=== PATIENT | female | born 1945 | race Caucasian/White ===

== ENCOUNTER 2016-06-03 13:49 | Observation (INO) | payer OTHER, MEDICARE ==
[2016-06-03] MEDS ORDERED: IOPAMIDOL (ISOVUE 370) 100 ML BTL IV ONE (14:12)
--- NOTE | 2016-06-03 14:13 | EDPHY ---
H & P Stated Complaint: This morning not, "thinking straight" , dizzy, facial numbness. Time Seen by Provider: 06/03/16 13:58 HPI/ROS: CHIEF COMPLAINT: Acute confusion, left facial numbness and weakness, 3 day history of occasional headache HISTORY OF PRESENT ILLNESS: The patient presents to the ED after she developed left facial numbness and weakness at approximately noon today. The patient states that this was preceded by an episode of acute confusion. The patient denies any peripheral complaints of numbness or weakness. The patient denies a current headache. She is not anticoagulated. She has no history of malignancy. The patient was brought in by her who denied any reported dysarthria or aphasia. In the ED, she continues to complain of facial numbness and a slight facial droop. REVIEW OF SYSTEMS: A comprehensive 10 point review of systems is otherwise negative aside from elements mentioned in the history of present illness. Source: Patient Exam Limitations: No limitations - Personal History Current Tetanus Diphtheria and Acellular Pertussis (TDAP): Yes - Medical/Surgical History Hx Asthma: No Hx Chronic Respiratory Disease: No Hx Diabetes: No Hx Cardiac Disease: No Hx Renal Disease: No Hx Cirrhosis: No Hx Alcoholism: No Hx HIV/AIDS: No Hx Splenectomy or Spleen Trauma: No - Social History Smoking Status: Never smoked - Physical Exam Exam: General Appearance: Alert, no distress Eyes: Pupils equal and round no pallor or injection ENT, Mouth: Mucous membranes moist Respiratory: There are no retractions, lungs are clear to auscultation Cardiovascular: Regular rate and rhythm Gastrointestinal: Abdomen is soft and nontender, no masses, bowel sounds normal Neurological: Alert and oriented x4, 5/5 strength noted all 4 extremities, slight left facial asymmetry, decreased sensation to light touch in the face, mild ataxia noted with left finger to nose, difficult to assess [id number] in the right upper extremity secondary to IV placement. Skin: Warm and dry, no rashes Musculoskeletal: Neck is supple nontender Extremities: symmetrical, full range of motion Constitutional: Initial Vital Signs Temperature (C) 36.4 C 06/03/16 13:51 Heart Rate 73 06/03/16 13:51 Respiratory Rate 18 06/03/16 13:51 Blood Pressure 146/66 H 06/03/16 13:51 O2 Sat (%) 96 06/03/16 13:51 O2 Delivery Mode Nasal Cannula O2 (L/minute) 2 Allergies/Adverse Reactions: latex [Latex] Allergy (Severe, Verified 06/01/15 11:38) morphine Allergy (Mild, Verified 06/01/15 11:38) Rash Home Medications: Medication Instructions Recorded Estradiol [Estrogel] 50 gm TD 04/26/11 valACYclovir [ValTREX] 500 mg PO 04/26/11 Olmesartan/Amlodipin/Hcthiazid 1 each PO 04/22/12 [Tribenzor 20-5-12.5 Mg Tablet] Ofloxacin 0.3% [Ocuflox 0.3%] 2 drops LEFTEYE QID #1 opht.btl 06/01/15 Medical Decision Making - Diagnostics EKG Interpretation: EKG: Complete interpretation has been separately recorded in the [facility] archive. Summary impression: Left bundle branch block, sinus rhythm, rate 68 Imaging: CT head without contrast: Negative for intracranial hemorrhage or acute abnormality. Study results reported to me by Dr. Boston Francois. ED Course/Re-evaluation: The patient presents to the ED with acute facial numbness and weakness that began at noon. After my evaluation I did activate the patient as a stroke alert. She was taken for a stat CT scan of the head which demonstrates no evidence of intracranial hemorrhage or intracranial abnormality. Patient was seen in consultation by the on-call neurologist for [facility] via the tele Neurology service. The patient returned from CT scan and had improved symptoms of her left facial weakness. At the time of the evaluation by the Neurology service she was asymptomatic. He does not feel the patient is a candidate for tPA based upon her markedly improved symptoms and current NIH stroke scale of 0. I did speak with Dr. Pak from [facility] who recommends admission for possible TIA. I have ordered a CTA of the head and neck. Consultation is made with Dr. Almendarez from the hospitalist service who will admit the patient. Differential Diagnosis: Differential diagnosis considered includes stroke, TIA, metabolic abnormality, seizure, carotid stenosis, dissection - Data Points Laboratory Results: Laboratory Results 06/03/16 14:05 06/03/16 14:05 06/03/16 06/03/16 06/03/16 14:05 14:05 14:05 WBC 6.88 10^3/uL 10^3/uL (3.80-9.50) RBC 3.98 10^6/uL L 10^6/uL (4.18-5.33) Hgb 14.0 g/dL g/dL (12.6-16.3) POC Hgb 15.0 gm/dL gm/dL (12.3-15.9) Hct 40.1 % % (38.0-47.0) POC Hct 44 % % (35.5-47.5) MCV 100.8 fL H fL (81.5-99.8) MCH 35.2 pg H pg (27.9-34.1) MCHC 34.9 g/dL g/dL (32.4-36.7) RDW 11.8 % % (11.5-15.2) Plt Count 366 10^3/uL 10^3/uL (150-400) MPV 8.8 fL fL (8.7-11.7) Neut % (Auto) 66.9 % % (39.3-74.2) Lymph % (Auto) 24.9 % % (15.0-45.0) [place] % (Auto) 5.8 % % (4.5-13.0) Eos % (Auto) 1.5 % % (0.6-7.6) Baso % (Auto) 0.6 % % (0.3-1.7) Nucleat RBC Rel Count 0.0 % % (0.0-0.2) Absolute Neuts (auto) 4.61 10^3/uL 10^3/uL (1.70-6.50) Absolute Lymphs (auto) 1.71 10^3/uL 10^3/uL (1.00-3.00) Absolute Monos (auto) 0.40 10^3/uL 10^3/uL (0.30-0.80) Absolute Eos (auto) 0.10 10^3/uL 10^3/uL (0.03-0.40) Absolute Basos (auto) 0.04 10^3/uL 10^3/uL (0.02-0.10) Absolute Nucleated RBC 0.00 10^3/uL 10^3/uL (0-0.01) Immature Gran % 0.3 % % (0.0-1.1) Immature Gran # 0.02 10^3/uL 10^3/uL (0.00-0.10) POC Sodium 139 mEq/L mEq/L (134-144) Sodium 138 mEq/L mEq/L (134-144) POC Potassium 3.9 mEq/L mEq/L (3.3-5.0) Potassium 4.2 mEq/L mEq/L (3.5-5.2) POC Chloride 99 mEq/L mEq/L (96-108) Chloride 100 mEq/L mEq/L (97-110) Carbon Dioxide 26 mEq/l mEq/l (22-31) Anion Gap 12 mEq/L mEq/L (8-16) POC BUN 17 mg/dL mg/dL (7-23) BUN 17 mg/dL mg/dL (7-23) Creatinine 1.0 mg/dL mg/dL (0.6-1.0) POC Creatinine 1.0 mg/dL mg/dL (0.6-1.2) Estimated GFR 55 Glucose 203 mg/dL H mg/dL (70-100) POC Glucose 203 mg/dL H mg/dL (70-100) Calcium 9.9 mg/dL mg/dL (8.5-10.4) Point of Care Test Results: 06/03/16 14:05 POC Sodium 139 POC Potassium 3.9 POC Chloride 99 POC BUN 17 POC Creatinine 1.0 POC Glucose 203 H Departure - Departure Disposition: [facility] Inpatient Acute Clinical Impression: Transient cerebral ischemia Condition: Good Referrals: Sami Teague MD [Primary Care Provider] - As per Instructions
[2016-06-03 14:15] LABS: % IMMATURE GRANULYOCYTES 0.3 % (0.0-1.1); ABSOLUTE IMMATURE GRANULOCYTES 0.02 10^3/uL (0.00-0.10); ADD DIFF? NO; ADD MORPH? NO; ADD SCAN? NO; ATYPICAL LYMPHOCYTE FLAG 10 (0-99); FRAGMENT RBC FLAG 0 (0-99); HEMATOCRIT 40.1 % (38.0-47.0); LEFT SHIFT FLG 0 (0-99); LIPEMIA HEMOLYSIS FLAG 90 (0-99); MEAN CELL HEMOGLOBIN 35.2 pg (27.9-34.1); MEAN CELL HEMOGLOBIN CONCENTR. 34.9 g/dL (32.4-36.7); MEAN CELL VOLUME 100.8 fL (81.5-99.8); MEAN PLATELET VOLUME 8.8 fL (8.7-11.7); PLATELET CLUMPS FLAG 0 (0-99); PLATELET COUNT 366 10^3/uL (150-400); RED BLOOD CELL COUNT 3.98 10^6/uL (4.18-5.33); RED CELL DISTRIBUTION WIDTH 11.8 % (11.5-15.2)
[2016-06-03 14:26] LABS: ANION GAP 12 mEq/L (8-16); CALCIUM 9.9 mg/dL (8.5-10.4); CARBON DIOXIDE 26 mEq/l (22-31); CHLORIDE 100 mEq/L (97-110); GLOMERULAR FILTRATION RATE 55; GLUCOSE 203 mg/dL (70-100); POTASSIUM 4.2 mEq/L (3.5-5.2); SODIUM 138 mEq/L (134-144)
--- NOTE | 2016-06-03 14:32 | CPEKG ---
Heart Rate: 68 RR Interval: 882 P-R Interval: 172 QRSD Interval: 140 QT Interval: 464 QTC Interval: 494 P [place]: 70 QRS [place]: -21 T Wave [place]: 113 EKG Severity - ABNORMAL ECG - EKG Impression: SINUS RHYTHM EKG Impression: LEFT BUNDLE BRANCH BLOCK Electronically Signed By: Johnie Wolf 03-Jun-2016 15:00:51
[2016-06-03] MEDS ORDERED: GADOBUTROL 10 ML VIAL IVP ONE (15:39)
[2016-06-03] MEDS ORDERED: ASPIRIN 81 MG CHEWABLE TAB ONE (15:39)
[2016-06-03] MEDS: ASPIRIN EC 81 MG TAB PO SCH (15:49)
--- NOTE | 2016-06-03 17:05 | GHP ---
[f rep st] HISTORY AND PHYSICAL DATE OF ADMISSION: 06/03/2016 CHIEF COMPLAINT: Left face numbness. HISTORY OF PRESENT ILLNESS: A 71-year-old female with a history of hypertension, on estrogen replac ement therapy after hysterectomy at age 41, who presents with sudden onset of left lower jaw numbnes s and mild confusion the morning of presentation. The patient's last time of normal was 11 a.m. whe n she noted some numbness on the inferior portion of her left cheek, was then attempting to use the computer and noted she was having difficulty completing tasks that typically would have been uncompl icated for her. She ate some food which she tolerated without nausea and had the confusion improve a bit yet the sensation in her left cheek persisted. She, therefore, presented to the emergency depa rtment for evaluation. In the ED she reports 3 episodes of a sharp shooting pain on the left side o f her head. In the days preceding this presentation they were unsustained. She has no history of m igraines. She denies any difficulty swallowing. Denies any vision changes. Reports that the sensa tion in her cheek has been improving since 11 a.m. and that the confusion now feels resolved. The p atient denies any chest pain. Denies shortness of breath. Denies cough. Denies nausea, vomiting, abdominal pain, diarrhea, dysuria, hematuria, melena, lower extremity edema or any rashes. She has no weakness or loss of sensation elsewhere in her body. Her gait feels strong and normal. PAST MEDICAL HISTORY: 1. Hypertension. 2. Status post hysterectomy at age 41. 3. Sudden hearing loss of the right ear. Diagnosis unclear. Patient was treated with steroids and had near complete resolution. 4. History of herpes orally. SOCIAL HISTORY: Negative for tobacco. Patient does take white wine every night, several glasses. Denies any illicit drugs or marijuana. FAMILY HISTORY: Negative for strokes. REVIEW OF SYSTEMS: A 10-point review of systems is negative with the exception of that reported in the HPI. PHYSICAL EXAMINATION: VITAL SIGNS: Blood pressure 136/74, heart rate 74, respiratory rate 18, satu rating 96% on room air, 36.7. GENERAL: This is a healthy-appearing middle-aged female in no acute distress. HEENT: Notable for moist mucous membranes. Eye exam is negative for any icterus. CARDI AC: Patient is regular rate and rhythm. Quiet systolic murmur is appreciated. PULMONARY: Good re spiratory effort. Clear to auscultation bilaterally. GASTROINTESTINAL: Positive bowel sounds. Ab domen is soft and nontender in all 4 quadrants. MUSCULOSKELETAL: Negative for any lower extremity edema. SKIN: Negative for any rashes. NEUROLOGIC: Patient has remnant decreased sensation in the lower portion of her left face. Pupils are equal, round, reactive to light. Cranial nerves are ot herwise intact. Strength is 5/5 bilaterally of the upper and lower extremities. PSYCHIATRIC: She is pleasant and cooperative on interview and examination. DATA: White count 6.8, hematocrit 40.1, platelet count of 366. BMP is normal. Blood glucose is [address] of the head, which I personally reviewed and interpreted, shows no acute bleeds o r intracranial findings. ASSESSMENT AND PLAN: This is a 71-year-old female, presenting with transient left facial numbness. 1. Acute transient ischemic attack. Initial imaging is negative. Her neurologic exam is near norm al during my evaluation which per report is markedly improved. Her last time of normal neurologic e xam was 11 a.m.. She took aspirin in the home. We will admit the patient for cardiac monitoring. Check CTA, as well as MRI of the brain. Check a transthoracic echocardiogram, lipids and a hemoglob in A1c. I have already discussed the case and Dr. Cruz from neurology will evaluate in the [facility]. We will hold the patient's estrogens until discussion with Neurology. Suspect this is 1 of h er higher risk contributors and likely will need to be weaned off or stop it altogether during this hospital stay. 2. Hypertension. We will continue her home medications. 3. Alcohol use. We will continue a glass a wine in the evenings to avoid any withdrawal. 4. Prophylaxis with Lovenox. DIET: Regular. DISPOSITION: I expect in less than 2 midnights that the patient's evaluation is normal and her neur ologic exam stays stable. Discussed the case with Dr. Cruz. He will consult in the a.m. /[id number]/MODL
[2016-06-03] MEDS ORDERED: WHITE WINE 120 ML BOTTLE PO SCH (18:00)
[2016-06-04 05:55] LABS: CHOLESTEROL 171 mg/dL (140-220); CHOLESTEROL/HDL RATIO 2.04 RATIO (1.00-4.44); HIGH DENSITY LIPOPROTEIN 84 mg/dL (40-85); LDL/HDL RATIO 0.92 RATIO (1.00-3.22); LOW DENSITY LIPOPROTEIN 77 mg/dL (80-100); NON-HIGH DENSITY LIPOPROTEIN 87 mg/dL (90-129); TRIGLYCERIDE 51 mg/dL (35-135); VERY LOW DENSITY LIPOPROTEINS 10 mg/dL (8-25)
[2016-06-04] MEDS: ASPIRIN EC 81 MG TAB PO SCH (08:27)
[2016-06-04 08:44] LABS: HEMOGLOBIN A1C 5.4 % (4.0-6.0)
[2016-06-04] MEDS ORDERED: AMLODIPINE PO SCH (09:00)
[2016-06-04] MEDS ORDERED: OLMESARTAN PO SCH (09:00)
[2016-06-04] MEDS ORDERED: Herbals/Supplements -Info Only PO SCH (09:00)
[2016-06-04] MEDS ORDERED: valACYclovir 500 MG TAB PO SCH (09:00)
[2016-06-04] MEDS ORDERED: HYDROCHLOROTHIAZIDE PO SCH (09:00)
--- NOTE | 2016-06-04 09:51 | GCON ---
[f rep st] CONSULTATION NEUROLOGIC CONSULTATION. REFERRING PHYSICIAN: Elsie Almendarez MD HISTORY: The patient is a 71-year-old woman who I am asked to see in neurologic consultation regard ing an onset of mild confusion yesterday around 11 a.m. and associated abnormal sensations in the le ft side of her face. She was having a little trouble working on the computer and went to speak to h er and was telling him she was having trouble. He checked her and did not find any speech p roblems. She was feeling a sense of tingling or numbness in the left side of her face. She was abl e to swallow. She came to the emergency room and was evaluated with stroke alert activation and ult imately found to have an NIH stroke scale of 1, but it was felt that she was not a candidate for tPA because of the improving very mild deficits. She has never had something exactly like this, except years ago she might have had some symptoms in the left side of her neck or face while she was in [place] and recalls nothing specifically being identified as a concern. She did not have any symptom s in the extremities. Her vision was not affected. There was no headache. She does not have a his tory of migraine. She has been on estrogen replacement since her hysterectomy many years ago. The duration of symptoms was probably 2 or 3 hours and then a little bit longer before complete resoluti on of the facial paresthesias. She has not had any fever, chills, nausea, vomiting, or diarrhea. N o chest pain, palpitations, or shortness of breath. No other exacerbating or alleviating factors fo r the symptoms. They remained mild throughout. A 10-point review of systems is completed and unrem arkable except for that noted above. In the emergency department, she had a head CT that was unremarkable. CT angiogram of the head and neck are unremarkable with no significant stenoses. LDL cholesterol 77. She has an MRI scan showin g nonspecific white matter changes but no evidence of an acute stroke. PAST MEDICAL HISTORY: Hypertension, hysterectomy at age 41, hearing loss in the right ear, history of oral herpes. SOCIAL HISTORY: She is retired from working as a commercial real estate broker. She has a glass of white wine most evenings, can be more than 1 glass sometimes. No smoking or drug use. FAMILY HISTORY: Negative for stroke. Late in life, her father had carotid disease with endarterect neptali. She lives in [place], [place] now. MEDICATIONS: She was not taking any daily aspirin prior to this event. She is on Estratest 1 daily , Valtrex 1000 mg daily, and Tribenzor for blood pressure. She has had 81 mg of aspirin added now s roman hospitalization. ALLERGIES: Latex and morphine. PHYSICAL EXAM: VITAL SIGNS: Blood pressure 122/69, pulse 68, respirations 16, temperature 36.9. G ENERAL: She is well developed, in no acute distress. EYES: Clear. NECK: Supple with no bruits o r masses. CARDIAC: Regular rate and rhythm with no murmur. EXTREMITIES: No cyanosis or edema. P ulses are 2+. NEUROLOGIC: She is awake, alert, and attentive with clear fluent speech. She is yann ented to person, place, time, and general situation. She has a good general fund of knowledge as we ll as normal concentration and attention with preservation of recent and remote memory. Normal lang uage skills. She has a friendly euthymic affect. Normal visual acuity. Pupils are 3 mm and reacti ve. Funduscopic exam unremarkable. No visual field loss. Extraocular movements are intact with no rmal facial sensation and strength. Palate elevates symmetrically and tongue protrudes midline. He aring is preserved. No weakness of head turning or shoulder shrug. Motor exam: Normal muscle bulk and tone with 5/5 strength and no abnormal movements. Sensation is preserved for temperature and l ight touch. No ataxia on [id number]. There is minimal tremulousness at the end of pointing on [id number]. Reflexes 1+ and symmetric with no pathologic reflexes. No discoordination. LABORATORY STUDIES: As outlined above. Echocardiogram is pending. She did have some elevation of blood sugar, around 200 when she came in, of uncertain source. MCV of 100.8 but normal platelets. EKG: Sinus rhythm. IMPRESSION: The patient is experiencing no symptoms currently. Her NIH stroke scale is 0. I suspe ct this was an episode of transient ischemic attack with small vessel disease as the likely source. Large vessel stenoses are not present on the CT angiogram. The patient has good cholesterol. Grace vandana, I would recommend consideration of a statin therapy, even with a normal cholesterol level as po tentially lowering the relative risk for stroke and heart attack. She does not want to take a stati n for now but may discuss this with Dr. Teague. She was not on aspirin, so she should continue that for stroke prophylaxis. Unless something unexpected arises from the rest of her diagnostic wo rkup, she should be able to be discharged. There is an elevation of the blood glucose of unclear si gnificance that Dr. Teague can follow up on. I am not sure if the elevated MCV may be a reflec tion of alcohol, so she should be sure to not consume more than 1 glass of alcohol per day. She estephanie uld maintain a regular exercise program. The differential considerations of complex migraine versus seizure are much less likely than transie nt ischemic attack. I gave her my contact information, but she does not need routine followup with me unless further questions arise. /[id number]/MODL
--- NOTE | 2016-06-04 12:05 | ECHO ---
[id number] + + [address] : : [place] [address] : : [phone] + + Adult Echocardiographic Report + ------+ :Name: Karen DUKES Date: 06/04/2016 10:28 AM : : Hospital Admission Number: [id number] Hernán n: 349: :: 1945 Gender: Female Height: 72 in : :Age: 71 yrs Race: WH Weight: 165 lb : :Reason For Study: Eval LV Fx : : BSA: 2.0 meters 2 : :History: TIA, Numbness L Side : + ------+ MMode/2D Measurements \T\ Calculations IVSd: 0.93 cm LVIDd: 4.3 cm FS: 41.0 % Ao root diam: 3.2 cm LVPWd: 0.96 cm LVIDs: 2.6 cm EDV(Teich): 84.3 ml ACS: 1.8 cm ESV(Teich): 23.5 ml EF(Teich): 72.1 % Normal Measurement Values: + + :LVIDd (3.5-5.7cm) IVSd (0.6-1.1cm) LVPWd (0.6-1.1cm) Aortic Root (2.0-3.7cm)Left Atrium (1.5-4.0cm): :LV Vol(d) (76-115ml) LV Vol(s) (29-48ml) Ejec Fraction (50-65%)PV Xiang (0.6- 1.2m/s) TV Xiang (0.4-1.0m/s) : :MV E Xiang (0.8-1.0m/s)MV A Xiang (0.3-1.0m/s)LVOT Xiang (0.7-1.2m/s) Asc Ao Xiang ( 0.9-1.8m/s) : + + Doppler Measurements \T\ Calculations MV E max xiang: Ao V2 max: LV V1 max: PA V2 max: 59.2 cm/sec 171.0 cm/sec 161.8 cm/sec 139.8 cm/sec MV A max xiang: Ao max PG: LV V1 max PG: PA max P.5 cm/sec 11.7 mmHg 10.5 mmHg 7.8 mmHg MV E/A: 0.78 TR max xiang: 243.0 cm/sec TR max P.6 mmHg RAP systole: 5.0 mmHg RVSP(TR): 28.6 mmHg Left Ventricle The left ventricle is normal in size. There is normal left ventricular wall thickness. The left ventricular ejection fraction is normal. There is Doppler evidence for diastolic dysfunction. Ejection Fraction = 73%. Septal motion is consistent with conduction abnormality. Right Ventricle The right ventricle is normal in size and function. Atria The left atrial size is normal. Right atrial size is normal. Mitral Valve The mitral valve is normal in structure and function. There is no evidence of mitral valve prolapse. There is no mitral valve stenosis. There is no mitral regurgitation noted. Tricuspid Valve Normal tricuspid valve. There is trace tricuspid regurgitation. Right ventricular systolic pressure is normal. Aortic Valve The aortic valve is normal in structure and function. There is no aortic stenosis. There is no aortic insufficiency. Pulmonic Valve The pulmonic valve is normal in structure and function. There is no pulmonic valvular regurgitation. Great Vessels The aortic root is normal size. Pericardium/Pleural There is a fat pad seen. Conclusion A complete two-dimensional transthoracic echocardiogram was performed (2D, M-mode, Doppler and color flow Doppler). The left ventricular ejection fraction is normal. There is Doppler evidence for diastolic dysfunction. Ejection Fraction = 73%. Septal motion is consistent with conduction abnormality. LBBB The right ventricle is normal in size and function. The mitral valve is normal in structure and function. There is trace tricuspid regurgitation. Right ventricular systolic pressure is normal. The aortic valve is normal in structure and function. There is a fat pad seen. Final Reading Physician: Bethel Carlson signed on 06/04/2016 12:04 PM Ordering Physician: Elsie Almendarez Performed By: Fernando Gilbert, MAYACS
--- NOTE | 2016-06-04 12:44 | HOSPPROG ---
Hospitalist Progress Note Assessment/Plan: Nadja is a 71 y/o female who presented to the ER with left facial numbness. Today is my first encounter with the patient. Chart reviewed. *Likely a TIA CTA of head and neck stable MRI of brain shows nothing acute Echo shows diastolic dysfunction aspirin therapy will discuss w PCP and discuss statin therapy for stroke reduction *LBBB evaluated her 12 lead ECG hx of this since age 36 *Hyperglycemia glucoses are elevated has a stable A1C of 5.4 *HTN 129/83 *alcohol use with elevated MCV *Plan: dc home with further f/u with Dr Teague Subjective: Nadja feels well/ ready to go. Objective: Vital Signs Temp Pulse Resp BP Pulse Ox 36.6 C 71 18 129/83 H 97 06/04/16 08:00 06/04/16 08:00 06/04/16 08:00 06/04/16 08:00 06/04/16 08:00 06/03/16 06/04/16 06/05/16 05:59 05:59 05:59 Intake Total 500 Output Total 200 Balance 300 - Physical Exam Constitutional: no apparent distress, appears nourished, not in pain Eyes: PERRL Ears, Nose, Mouth, Throat: hearing normal Cardiovascular: regular rate and rhythym Respiratory: no respiratory distress Gastrointestinal: normoactive bowel sounds Skin: warm Musculoskeletal: full muscle strength Neurologic: AAOx3, CN II-XII Intact, No weakness, No numbness, No pronator drift , No facial droop Psychiatric: interacting appropriately, not anxious ICD10 Worksheet Patient Problems: Problems Problem Status Onset Transient cerebral ischemia Acute
[2016-06-04 13:25] VITALS: BP 119/66; PULSE 67; RESP 16; TEMP 98.1; O2SAT 95
--- NOTE | 2016-06-04 13:58 | GDS ---
[f rep st] DISCHARGE SUMMARY DISCHARGE DIAGNOSES: 1. Likely transient ischemic attack. 2. Left bundle branch block. 3. Hyperglycemia. 4. Hypertension. 5. Alcohol use with elevated MCV. CONSULTATIONS DURING HOSPITAL STAY: Dr. Goldy Cruz HISTORY: Briefly, the patient is a 71-year-old female with a history of hypertension, on estrogen t herapy after hysterectomy, who presented to the emergency room with onset of left lower jaw numbness and mild confusion. She was noted to be normal at 11 in the morning. She was attempting to use [employer] computer, noted she was having difficulty completing tasks that would typically have been uncompli cated for her. She ate some food, which she tolerated without nausea. In the ER, she reported 3 ep isodes of sharp shooting pain on the left side of her head. She has no history of migraines. She w as admitted for further care. HOSPITAL COURSE: 1. Likely, a transit ischemic attack. She was seen and evaluated by the neurologist, Dr. Goldy bertrand. She had a CT of the head that was unremarkable. CT angiogram of the head and neck was also unremarkable without significant stenosis. An MRI was performed, which showed nonspecific white mat ter changes but no evidence of an acute stroke. LDL was checked and was 77. Hemoglobin A1c was sta ble. Vital signs have been stable. Her symptoms subsequently resolved. Recommendation is for her to remain on aspirin therapy and to discuss with her primary care provider, statin therapy. At this time, she would like to hold off on statin therapy. Echocardiogram shows diastolic dysfunction. 2. Left bundle branch block. Reviewed her 12-lead EKG, which did indeed confirm this. She says th at she has had a history of this since age 36. 3. Hyperglycemia. Her glucoses were noted to be elevated on admission. She had a hemoglobin A1c o f 5.4. Further follow up with Dr. Teague. 4. Hypertension. Blood pressure is 129/83. 5. Alcohol use. She has an elevated MCV. She had no signs or symptoms of any type of withdrawal. PENDING LABS AND TESTS: None. CONDITION AT DISCHARGE: Stable. Blood pressure is 129/83, respiratory rate is 18, pulse 71, temper ature 36.6 Celsius, O2 saturation on room air 97%. MEDICATIONS AT DISCHARGE: Please see the EMR. DISCHARGE INSTRUCTIONS: 1. Follow up with Dr. Trojanovich, to get her glucose re-evaluated. She is also to discuss with janette berman about statin therapy and continued estrogen therapy. 2. If she has any stroke symptoms, to return to the emergency room. /[id number]/MODL
== END 2016-06-04 14:00 | disposition home or self-care (01) ==
LOC: F3N 16:41
PROVIDERS: ADMIT Hospitalist; ATTEND Internal Medicine Pulmonary Disease
DX: G45.9 Transient cerebral ischemic attack, unspecified (principal); I44.7 Left bundle-branch block, unspecified; R73.9 Hyperglycemia, unspecified; I10 Essential (primary) hypertension; Z72.89 Other problems related to lifestyle
CPT/HCPCS: 70450; 70496; 70498; 70553; 71010; 92523; 93005; 93306; 99285; A9585; G0378; G8999; G9158; G9186; Q9967; 82947-QW

== ENCOUNTER → 2016-12-27 | Outpatient (CLI) | payer OTHER, MEDICARE | LOC: CIMAGING 13:55 | PROVIDERS: ATTEND Internal Medicine | DX: R06.02 Shortness of breath (principal); R05 Cough | CPT/HCPCS: 71020-PO ==

== ENCOUNTER → 2016-12-31 | Outpatient (CLI) | payer OTHER, MEDICARE | LOC: CIMAGING 10:00 | PROVIDERS: ATTEND Internal Medicine | DX: I82.409 Acute embolism and thrombosis of unspecified deep veins of unspecified lower extremity (principal); R05 Cough; R07.9 Chest pain, unspecified | CPT/HCPCS: 71020-PO ==

== ENCOUNTER → 2016-12-31 | Outpatient (CLI) | payer OTHER, MEDICARE | LOC: CIMAGING 09:57 | PROVIDERS: ATTEND Internal Medicine | DX: I82.409 Acute embolism and thrombosis of unspecified deep veins of unspecified lower extremity (principal); R05 Cough; R07.9 Chest pain, unspecified ==